=== PATIENT | male | born 1995 | race Hispanic/Latino ===

== ENCOUNTER 2021-06-09 18:45 | Emergency (ER) | payer BC ==
[~2021-06-09] VITALS: Ht 165.1 cm; Wt 91.2 kg
[2021-06-09] MEDS ORDERED: IBUPROFEN 600 MG TAB PO STA (19:23)
[2021-06-09] MEDS ORDERED: PREDNISONE 20 MG TAB PO ONE (19:30)
[2021-06-09] MEDS ORDERED: IBUPROFEN600 MG PO (21:07)
[2021-06-09] MEDS ORDERED: PREDNISONE50 MG PO (21:07)
[2021-06-09] MEDS ORDERED: AUGMENTIN 875-1 EACH PO (21:07)
[2021-06-10 02:38] VITALS: BP 132/85
== END 2021-06-09 21:15 | disposition home or self-care (01) ==
LOC: ER 19:13
DX: R50.9 Fever, unspecified (principal); J06.9 Acute upper respiratory infection, unspecified; Z20.822 Contact with and (suspected) exposure to COVID-19
CPT/HCPCS: 83518; 87070; 99283; J7512; U0002